=== PATIENT | male | born 1955 | race Caucasian/White ===

== ENCOUNTER → 2021-01-24 | Outpatient (CLI) | payer OTHER ==
--- NOTE | 2021-01-24 17:56 | CARDNUC ---
[place] [address] CARDIAC NUCLEAR IMAGING REPORT Name: WILLIAMS BROOKS Room: [facility]#: [id number] Admission: 01/24/21 Attend Phys: Helena Trevino Discharge: Date of : 51 Date of Service: 01/24/21 1755 Report #: [id number] THIS REPORT FOR: cc: Helena Mendez MD, Tisha Darice MD Liston, Michael J. MD [facility] ~ APPROVED REPORT Study performed: 01/24/2021 11:34:04 Exam: Nuclear Stress Test Indication: Chest pain Patient Location: Out-Patient Stress Nurse: Claudia Montanez RN Ht: 5 ft 6 in Wt: 165 lbs BSA: 1.84 m2 BMI: 26.62 Medical History Medical History: HTN Medications: AMLODIPINE, ASA Allergies: CODEINE Cardiac Risk Factors: Age, HTN Exercise History: Indeterminate Stress Test Details Stress Test: Pharmacologic stress testing performed using 0.4 mg of regadenoson per 5 mL given IV over 10 seconds. Reason for pharmacologic stress test: physical limitation. HR Resting HR: 77 bpm Max Heart Rate (APMHR): 153 bpm Max HR Achieved: 90 bpm Target HR (85% APMHR): 130 bpm % of APMHR: 58 Recovery HR: 86 bpm BP Resting BP: 136/79 mmHg Max BP: 132/77 mmHg ECG Resting ECG: Sinus Rhythm Stress ECG: Sinus Rhythm ST Change: [place] [address] CARDIAC NUCLEAR IMAGING REPORT Name: WILLIAMS BROOKS [id number] Admission: 01/24/21 Attend Phys: Helena Trevino Discharge: Date of : 51 Date of Service: 01/24/21 1755 Report #: [id number] Arrhythmia: None Recovery ECG: Sinus Rhythm Recovery ST Change: None Recovery Arrhythmia: None Clinical Reason for Termination: Completed protocol The patient tolerated Lexiscan infusion without significant cardiac symptoms. Nurse Comments PATIENT WALKS WITH CANE, CANNOT WALK ON TREADMILL Stress ECG Conclusion The baseline twelve-lead EKG shows sinus rhythm without significant ST segment or T wave abnormality. EKGs obtained during and post Lexiscan infusion show sinus rhythm with no significant ST segment or T wave changes when compared to baseline. There were no stress-induced arrhythmias. NM EXAM: Myocardial Perfusion REST/STRESS Resting Data Rest SPECT myocardial perfusion imaging was performed in supine position 30 minutes following the intravenous injection of 9.3 mCi of Tc-99m Sestamibi. Time of rest injection: 10:30 The images were gated to evaluate regional wall motion and calculate left ventricular ejection fraction. Administration Route: IV Pharmacologic Stress Pharmacologic stress test was performed by injecting Regadenoson 0.4 mg IV push followed by the intravenous injection of 31.7 mCi of Tc-99m Sestamibi. Time of stress injection: 11:50 Administration Route: IV Heart Rate at time of stress injection: 90 bpm. Gated Stress SPECT was performed 45 minutes after stress injection. The images were gated to evaluate regional wall motion and calculate left ventricular ejection fraction. Study Quality Study: Good Artifact: [place] [address] CARDIAC NUCLEAR IMAGING REPORT Name: WILLIAMS BROOKS Mario Room: [facility]#: [id number] Admission: 01/24/21 Attend Phys: Helena Trevino Discharge: Date of : 51 Date of Service: 01/24/21 1755 Report #: [id number] Study Data At rest, the left ventricular ejection fraction was 77%.. Post stress, the left ventricular ejection was 79%.. TID = 0.92. Perfusion Perfusion images obtained at rest and post Lexiscan infusion show uniform uptake of the radioisotope throughout the myocardium. There were no defects to suggest infarct or ischemia. Wall Motion Normal left ventricular wall motion. Nuclear Conclusion ECG Findings: negative for ischemia Clinical Findings: negative for ischemia Nuclear Findings: negative for ischemia Exercise Capacity: not assessed Left Ventricular Function: normal Risk Study: low Perfusion images show no defect to suggest infarct or ischemia. Left ventricular systolic function appears normal on gated studies. This is a low risk study. <Conclusion> The baseline twelve-lead EKG shows sinus rhythm without significant ST segment or T wave abnormality. EKGs obtained during and post Lexiscan infusion show sinus rhythm with no significant ST segment or T wave changes when compared to baseline. There were no stress-induced arrhythmias. <ELECTRONICALLY SIGNED> By: Louis Benitez MD, FACC 01/24/211754 [id number] Louis Benitez MD, FACC /INF
== END ==
LOC: M.NUC 01-18 12:14
PROVIDERS: ATTEND Family Medicine
DX: R07.9 Chest pain, unspecified (principal)